=== PATIENT | female | born 1985 | race Caucasian/White ===

== ENCOUNTER 2020-07-06 11:25 | Outpatient (REF) | payer OTHER, SELFPAY ==
--- NOTE | 2020-07-06 11:29 | CT_ITS ---
EXAMINATION: CT SINUS WITHOUT CONTRAST CLINICAL INFORMATION: Sinonasal polyp with deviated septum. COMPARISON: None TECHNIQUE: 2 mm thin axial and reformatted 2 mm thin sagittal and coronal images of sinuses were obtained without contrast. This CT examination was performed using dose optimization techniques as appropriate, variously including the following: *Automated exposure control *Adjustment of mA and/or kV according to patient size (this includes techniques or standardized protocols for targeted exams where dose is matched to indication/reason for exam; i.e. extremities or head) *Use of iterative reconstruction technique DLP: 106 mGy-cm FINDINGS: The frontal, ethmoid, maxillary, and sphenoid sinuses are well aerated. There is minimal mucosal thickening bilateral maxillary sinuses. The rest of paranasal sinuses are clear. The ostiomeatal complex and bilateral frontoethmoidal recesses are widely patent. The bony sinus britton, lamina papyracea and cribriform plate are intact. NASAL CAVITY/NASOPHARYNX: There is mild deviation of the nasal septum to the right with tiny bony spur. The turbinates are symmetrical. The nasopharynx and nasal cavity airway are widely patent. The bony orbits, optic globe and optic nerves are widely patent and symmetrical. ADDITIONAL RELEVANT FINDINGS: No periapical disease is seen. The TMJs articulate normally. The orbits and skull base soft tissues are unremarkable. The middle ear cavities and mastoid air cells are clear. Limited evaluation demonstrates no acute intracranial findings. CT/CT sinus wo con IMPRESSION: Chronic bilateral maxillary sinus inflammatory changes. The drainage pathways are patent. Mild deviation of the nasal septum to the right.
== END 2020-07-06 11:26 | disposition home or self-care (01) ==
LOC: HO.CT 11:25
PROVIDERS: Visit Provider Otolaryngology
DX: J33.0 Polyp of nasal cavity (principal); J34.2 Deviated nasal septum
CPT/HCPCS: 70486

== ENCOUNTER 2020-08-25 15:54 | Outpatient (REF) | payer OTHER, SELFPAY ==
[2020-08-25 16:49] LABS: MANUAL DIFF FLAG NO
[2020-08-25 16:54] LABS: Basophils Absolute Auto 0.1 X10*3/uL (0.0-0.2); Basophils Percent Auto 0.7 % (0-2); Eosinophils Absolute Auto 0.6 X10*3/uL (0.0-0.4); Eosinophils Percent Auto 5.8 % (0-4); Hematocrit 41.6 % (37-47); Hemoglobin 13.9 g/dl (12.0-16.0); Imm Gran Abs Auto 0.03 X10*3/uL (0.00-0.03); Imm Gran Pct Auto 0.3 % (0.0-0.4); Lymphocytes Percent Auto 27.6 % (20-40); Mean Corpuscular HGB Conc 33.4 g/dl (31.0-35.0); Mean Corpuscular Hemoglobin 27.5 pg (27.0-33.0); Mean Corpuscular Volume 82.2 fL (80-98); Mean Platelet Volume 9.1 fL (9.4-12.3); Monocytes Absolute Auto 0.7 X10*3/uL (0.1-1.2); Monocytes Percent Auto 6.5 % (2-11); Neutrophils Absolute Auto 6.3 X10*3/uL (2.0-8.3); Neutrophils Percent Auto 59.1 % (45-73); Platelet Count 404 X10*3/uL (160-400); Red Blood Count 5.06 X10*6/uL (4.20-5.50); Red Cell Distribution Width 14.1 % (11.0-16.0); White Blood Count 10.7 X10*3/uL (4.8-10.8)
[2020-08-25 17:19] LABS: Alanine Aminotransferase 18 U/L (0-31); Albumin Level 4.8 g/dL (3.5-5.0); Alkaline Phosphatase 79 U/L (39-117); Anion Gap 14 (12-20); Aspartate Amino Transferase 15 U/L (5-31); Bilirubin Total 0.3 mg/dL (0.0-1.0); Blood Urea Nitrogen 13 mg/dL (9-16); Calcium 9.6 mg/dL (8.4-10.2); Carbon Dioxide 27 mmol/L (22-29); Chloride 104 mmol/L (96-108); Cholesterol 222 mg/dL; Estimated Glomerular Filt Rate > 60; Glucose Fasting 93 mg/dL (60-99); HDL Cholesterol 49 mg/dL; LDL Cholesterol Calculated 147 mg/dl; Potassium 4.7 mmol/L (3.3-5.1); Sodium 140 mmol/L (135-145); Total Protein 8.5 g/dL (6.5-8.0); Triglycerides 133 mg/dL
[2020-08-25 17:38] LABS: TSH reflex Free T4 35.47 uIU/mL (0.32-4.0)
== END 2020-08-25 15:55 | disposition home or self-care (01) ==
LOC: HO.LAB 15:54
PROVIDERS: PCP Internal Medicine; Visit Provider Nurse Practitioner Family
DX: G43.909 Migraine, unspecified, not intractable, without status migrainosus (principal)
CPT/HCPCS: 36415; 80053; 80061; 84439; 84443; 85025

== ENCOUNTER 2020-10-22 08:11 | Emergency (ER) | payer OTHER, SELFPAY ==
--- NOTE | ~2020-10-22 | CT_ITS ---
EXAMINATION: CT HIP WITHOUT CONTRAST, RIGHT CLINICAL INFORMATION: Right hip and femur pain COMPARISON: None TECHNIQUE: Axial 2 mm thin and reformatted 1 mm thin sagittal and coronal images of right hip were obtained without contrast. DLP 288 mGy-cm. This CT examination was performed using dose optimization techniques as appropriate, variously including the following: *Automated exposure control *Adjustment of mA and/or kV according to patient size (this includes techniques or standardized protocols for targeted exams where dose is matched to indication/reason for exam; i.e. extremities or head) *Use of iterative reconstruction technique FINDINGS: There is no visible acute fracture, dislocation or subluxation. The right hip joint space is maintained normal. No bony erosive changes seen. The cortical margins of proximal femur and the acetabulum are intact. The soft tissues are normal. CT/CT hip RT wo con IMPRESSION: No occult fracture seen. Unremarkable right hip exam.
--- NOTE | ~2020-10-22 | XR_ITS ---
EXAMINATION: XR HIP, RIGHT CLINICAL INFORMATION: Right hip pain. COMPARISON: None. TECHNIQUE: 2 views of the right hip. FINDINGS: There is no visible acute fracture, dislocation or subluxation. There are punctate lucencies seen in the right proximal femur and ischium. These may represent secondary to bone demineralization. Bone marrow abnormality cannot be excluded such as myeloma. XR/XR hip RT w PEL1V IMPRESSION: No visible acute fracture, dislocation or subluxation seen. Multiple small punctate lucencies seen throughout the right proximal femur. This could be secondary to demineralization or bone marrow disease. Correlate with blood test.
[2020-10-22 08:54] VITALS: BP 134/86; PULSE 93; RESP 18; TEMP 36.8; O2SAT 99; BMI 37.1
--- NOTE | 2020-10-22 09:09 | ED.GENADULT ---
HPI - General Adult General Chief complaint: General Medical Stated complaint: JOINT PAIN Time Seen by Provider: 10/22/20 08:37 History of Present Illness HPI narrative: Patient presents to the ED with a 1 day history of right upper extremity pain and and right hip and leg pain. Patient denies any recent trauma pain is 8/10 and increases with range of motion. Patient states she awoke like this and has not had similar symptoms in the past. 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 Pain in the right upper extremity increases with range of motion. No numbness or tingling. Patient denies any loss of bowel movements. Pain patient describes the pain in the right lower extremity from the right hip over to the anterior aspect of the right thigh. Pain increases with range of motion or attempts to ambulate. Symptoms are moderate. Patient states she is fully vaccinated for COVID-19. Patient denies tobacco history no other complaints this time. Related Data Previous Rx's Medication Instructions Recorded prednisone 10 mg tablet 10 mg PO DAILY 9 Days #18 tab 08/14/20 levothyroxine 125 mcg capsule 125 mcg PO DAILY 90 Days #90 cap 08/31/20 methocarbamol 750 mg PO Q8H #20 tab 10/22/20 tramadol 50 mg PO BID PRN #20 tab 10/22/20 Allergies Allergy/AdvReac Type Severity Reaction Status Date / Time dog,cats Allergy Unknown Unknown Uncoded 10/22/20 08:58 mold Allergy Unknown Unknown Uncoded 10/22/20 08:58 Review of Systems Review of Systems: Constitutional : No Weight loss, No Fever, No Chills, No Night Sweats, No Fatigue, No Malaise ENT/Mouth : No Hearing loss, No Ear Pain, No Nasal Congestion, No Sinus Pain, No Hoarseness, No sore throat, No Rhinorrhea, No Swallowing Difficulty Eyes: No Eye Pain, No Swelling, No Redness, No Foreign Body, No Discharge, No Vision Changes Cardiovascular : No Chest Pain, No SOB, No Dyspnea on Exertion, No Orthopnea, No Edema, No Palpitations Respiratory : No Cough, No Sputum, No Wheezing, No Smoke Exposure, No Dyspnea Gastrointestinal : No Nausea, No Vomiting, No Diarrhea, No Constipation, No abdominal Pain, No Hematochezia, No Melena Genitourinary : no irregular bleeding, No Dysuria, No Urinary Frequency, No Hematuria, No Urinary Incontinence, No Urgency, No Flank Pain, No Urinary Flow Changes, No Hesitancy Musculoskeletal : No joint pain, No Myalgias, No Joint SwellingSkin : No Skin Lesions, No rash Neuro : No Weakness, No Numbness, No Paresthesias, No Loss of Consciousness, No Dizziness, No Headache Psych : No Anxiety/Panic, No Depression, No SI/HI/AH/VH, No Social Issues, Heme/Lymph: No Bruising, No Bleeding,No Lymphadenopathy Endocrine : No Polyuria, No Polydipsia, No Temperature Intolerance [facility] Past Medical History Attestation statement: The following information was validated with the patient. Medical History Chronic ear pain Hyperthyroidism Migraine PCOS (polycystic ovarian syndrome) Family History Family History Mother No problems noted. Father High blood pressure Social History Social History Alcohol intake: current Smoking Status: Never smoker Advance Directives: Yes Advance Directives Information Provided: No Advance Directives on File: No Patient : No Physical Exam Vital Signs: Vital Signs: Last Vital Signs Temp 98.2 F 10/22/20 08:54 Pulse 107 H 10/22/20 14:26 Resp 18 10/22/20 11:37 BP 135/90 H 10/22/20 14:26 Pulse Ox 100 10/22/20 14:26 Body Mass Index 37.1 vital signs have been reviewed as normal and appeared to be correct. Blood pressure normal. Heart rate normal. Respiration rate normal. Temperature normal. Oxygen saturation normal. Appearance: Alert. Oriented X3. No acute distress. Head: Normal external exam. Normocephalic. Atraumatic. No Rowe signs noted. No raccoon eyes noted Eyes: PERRLA. EOMI. Conjunctiva and sclera normal. Eyelids normal. ENT: Pharynx normal. Uvula midline. Moist mucous membranes. No trismus noted. No drooling noted. No muffled voice noted. Neck: Soft full range of motion, no JVD CVS: Heart regular rate and rhythm no murmurs and rubs Respiratory: Breath sounds are clear to auscultation bilaterally. No accessory muscle use noted. Abdomen: Soft nontender no rebound or guarding positive bowel sounds Back: No CVA tenderness. Full range of motion noted. Skin: Skin warm and dry. Normal skin color. Normal skin turgor. No rashes/lesions/lacerations noted. Extremities: Right upper extremity she has full range of motion positive tenderness extending from the right elbow to the right forearm. Line Director is equal bilaterally pulses are positive. Right hip positive lateral aspect tenderness pain extending into the anterior aspect of the right quadriceps pain increases with range of motion sensations intact.. Neuro: Oriented X 3. No motor deficit. No sensory deficit. Reflexes normal. No pronator drift. Line Director is equal bilaterally. No focal deficit. Sensation is intact. Course Course Course Narrative: 30 mg Toradol IM and 5 mg Valium p.o. plan to get right hip x-ray. Right upper extremity symptoms likely to due to an overuse injury. Right lower extremity symptoms right hip bursitis versus her right leg sciatica although the lumbar spine is nontender at this time. 10:40 a.m. Patient has had some symptomatic relief x-rays pending 11:18 a.m. Case discussed with attending Dr. Crockett will get a CBC basic metabolic panel and a CT scan of the right hip at this time secondary to plain film findings. 2:23 p.m. Case discussed with Dr. Cui of Radiology the punctated lucency seen on the plain film are not visualized on CT scan close follow-up is still plan for the patient at this time. Will discharge patient with crutches at this time she understands the importance of follow-up. Medical Decision Making Lab Data Result diagrams: 10/22/20 11:32 10/22/20 11:32 Labs: Lab Results 10/22/20 10/22/20 10/22/20 Range/Units 11:32 11:32 12:49 WBC 16.1 H (4.8-10.8) X10*3/uL RBC 4.57 (4.20-5.50) X10*6/uL Hgb 12.8 (12.0-16.0) g/dl Hct 38.8 (37-47) % MCV 84.9 (80-98) fL MCH 28.0 (27.0-33.0) pg MCHC 33.0 (31.0-35.0) g/dl RDW 13.2 (11.0-16.0) % Plt Count 335 (160-400) X10*3/uL MPV 8.5 L (9.4-12.3) fL Immature Gran % (Auto) 0.5 H (0.0-0.4) % Neut % (Auto) 86.3 H (45-73) % Lymph % (Auto) 6.1 L (20-40) % [place] % (Auto) 6.8 (2-11) % Eos % (Auto) 0.1 (0-4) % Baso % (Auto) 0.2 (0-2) % Lymph # (Auto) 1.0 L (1.2-4.9) X10*3/uL [place] # (Auto) 1.1 (0.1-1.2) X10*3/uL Eos # (Auto) 0.0 (0.0-0.4) X10*3/uL Baso # (Auto) 0.0 (0.0-0.2) X10*3/uL Abs Immat Gran (auto) 0.08 H (0.00-0.03) X10*3/uL Absolute Neuts (auto) 13.9 H (2.0-8.3) X10*3/uL Absolute Nucleated RBC 0.000 (0.0-0.012) X10*3/uL Nucleated RBC % (auto) 0.0 (0.0-0.2) /100WBC Sodium 136 (135-145) mmol/L Potassium 4.2 (3.3-5.1) mmol/L Chloride 104 (96-108) mmol/L Carbon Dioxide 24 (22-29) mmol/L Anion Gap 12 (12-20) BUN 9 (9-16) mg/dL Creatinine 0.76 (0.5-1.4) mg/dL Estim Creat Clear Calc 126.1 Estimated GFR > 60 Random Glucose 125 H (60-115) mg/dL Calcium 9.3 (8.4-10.2) mg/dL Urine Test NEGATIVE (NEGATIVE) Imaging Data hip: Radiologist's impression: [address] [id number] ReportSigned Patient: Judy Lang#: [id number]: 1985Acct:[id number]/Sex: 35 / FADM Date: 10/22/20Loc: NIDIAAttending Dr: Ordering Physician: Chris Aaron Date of Service: 10/22/20 Procedure(s): XR hip RT w PEL1V Accession Number(s): [id number] cc: Chris Aaron ~ EXAMINATION: XR HIP, RIGHT CLINICAL INFORMATION: Right hip pain. COMPARISON: None. TECHNIQUE: 2 views of the right hip. FINDINGS: There is no visible acute fracture, dislocation or subluxation. There are punctate lucencies seen in the right proximal femur and ischium. These may represent secondary to bone demineralization. Bone marrow abnormality cannot be excluded such as myeloma. XR/XR hip RT w PEL1V IMPRESSION: No visible acute fracture, dislocation or subluxation seen. Multiple small punctate lucencies seen throughout the right proximal femur. This could be secondary to demineralization or bone marrow disease. Correlate with blood test. Dictated By:AVELINA CUI MDSigned By:<Electronically signed by AVELINA CUI MD in OV>10/22/[address] Hip: Radiologist's impression: [address] Scan ReportSigned Patient: Nela LangMR#: [id number]: 1985Acct:[id number]/Sex: 35 / FADM Date: 10/22/20Loc: EDAttending Dr: Ordering Physician: Chris Aaron Date of Service: 10/22/20 Procedure(s): CT hip RT wo con Accession Number(s): [id number] cc: Chris Aaron ~ EXAMINATION: CT HIP WITHOUT CONTRAST, RIGHT CLINICAL INFORMATION: Right hip and femur pain COMPARISON: None TECHNIQUE: Axial 2 mm thin and reformatted 1 mm thin sagittal and coronal images of right hip were obtained without contrast. DLP 288 mGy-cm. This CT examination was performed using dose optimization techniques as appropriate, variously including the following: *Automated exposure control *Adjustment of mA and/or kV according to patient size (this includes techniques or standardized protocols for targeted exams where dose is matched to indication/reason for exam; i.e. extremities or head) *Use of iterative reconstruction technique FINDINGS: There is no visible acute fracture, dislocation or subluxation. The right hip joint space is maintained normal. No bony erosive changes seen. The cortical margins of proximal femur and the acetabulum are intact. The soft tissues are normal. CT/CT hip RT wo con IMPRESSION: No occult fracture seen. Unremarkable right hip exam. Dictated By:AVELINA CUI MDSigned By:<Electronically signed by AVELINA CUI MD in OV>10/22/20 1405 DD/ 1117TD/TT: Gsa Coordinator: [facility] [place] Dis[place] Plan Discharge Clinical Impression: Acute leg pain Patient Disposition: Home, Self-Care Instructions: Leg Pain (ED) Additional Instructions: Close follow-up with PCP is recommended. CT scan of the right hip and proximal thigh is negative Minimal to light work is recommended at this time until follow-up. Prescriptions: New methocarbamol 750 mg tablet 750 mg PO Q8H Qty: 20 RF: 0 tramadol 50 mg tablet 50 mg PO BID PRN (Reason: severe pain (scale score 7-10)) Qty: 20 RF: 0 No Action levothyroxine 125 mcg capsule 125 mcg PO DAILY 90 Days Qty: 90 RF: 0 prednisone 10 mg tablet 10 mg PO DAILY 9 Days Qty: 18 RF: 0 Referrals: Gary Auguste MD [Primary Care Provider] - 2 days Stand Alone Forms: Work/School Release Interventions: ED Discharge Assessment Last Done: 10/22/20 14:33
[2020-10-22] MEDS: diazePAM 5 MG TABLET PO (09:52)
[2020-10-22] MEDS: Ketorolac Tromethamine 30 MG/ML VIAL IM (09:52)
[2020-10-22 11:36] LABS: MANUAL DIFF FLAG NO
[2020-10-22 11:37] VITALS: RESP 18
[2020-10-22 11:40] LABS: Basophils Percent Auto 0.2 % (0-2); Eosinophils Percent Auto 0.1 % (0-4); Hematocrit 38.8 % (37-47); Hemoglobin 12.8 g/dl (12.0-16.0); Imm Gran Abs Auto 0.08 X10*3/uL (0.00-0.03); Imm Gran Pct Auto 0.5 % (0.0-0.4); Lymphocytes Percent Auto 6.1 % (20-40); Mean Corpuscular Volume 84.9 fL (80-98); Mean Platelet Volume 8.5 fL (9.4-12.3); Monocytes Absolute Auto 1.1 X10*3/uL (0.1-1.2); Monocytes Percent Auto 6.8 % (2-11); Neutrophils Absolute Auto 13.9 X10*3/uL (2.0-8.3); Neutrophils Percent Auto 86.3 % (45-73); Platelet Count 335 X10*3/uL (160-400); Red Blood Count 4.57 X10*6/uL (4.20-5.50); Red Cell Distribution Width 13.2 % (11.0-16.0); White Blood Count 16.1 X10*3/uL (4.8-10.8)
[2020-10-22 12:12] LABS: Anion Gap 12 (12-20); Blood Urea Nitrogen 9 mg/dL (9-16); Calcium 9.3 mg/dL (8.4-10.2); Carbon Dioxide 24 mmol/L (22-29); Chloride 104 mmol/L (96-108); Creatinine Clr Calc Pharmacy 126.1; Estimated Glomerular Filt Rate > 60; Glucose Random 125 mg/dL (60-115); Potassium 4.2 mmol/L (3.3-5.1); Sodium 136 mmol/L (135-145)
[2020-10-22 13:00] LABS: UPreg QC Valid YES; Urine Pregnancy NEGATIVE (NEGATIVE)
[2020-10-22 14:26] VITALS: BP 135/90; PULSE 107; O2SAT 100
== END 2020-10-22 14:40 | disposition home or self-care (01) ==
PROVIDERS: Physician Assistant; Emergency Provider Emergency Medicine; PCP Internal Medicine
DX: M79.604 Pain in right leg (principal)
CPT/HCPCS: 36415; 73502; 73700; 80048; 81025; 85025; 96372; 99284; J1885

== ENCOUNTER 2020-11-03 16:29 | Outpatient (REF) | payer OTHER, SELFPAY ==
[2020-11-03 18:02] LABS: Rheumatoid Factor < 15.0 IU/mL (<15.0)
[2020-11-03 18:19] LABS: TSH reflex Free T4 1.11 uIU/mL (0.32-4.0)
[2020-11-03 19:32] LABS: Erythrocyte Sedimentation Rate 37 MM/HR (0-20)
[2020-11-04 12:31] LABS: Anti DNA DS Antibody <1 IU/mL
[2020-11-04 13:47] LABS: Lyme Abs Screen <0.90 index
[2020-11-06 23:06] LABS: Anti Nuclear Antibody Pattern Nuclear, Homogeneous; Anti Nuclear Antibody Screen POSITIVE (NEGATIVE)
== END 2020-11-03 16:30 | disposition home or self-care (01) ==
LOC: HO.LAB 16:29
PROVIDERS: PCP Internal Medicine; Visit Provider Physician Assistant
DX: E03.9 Hypothyroidism, unspecified (principal); M25.50 Pain in unspecified joint
CPT/HCPCS: 36415; 84443; 85652; 86038; 86039; 86225; 86431; 86617; 86618

== ENCOUNTER 2020-12-10 13:01 | Outpatient (REF) | payer OTHER, SELFPAY ==
[2020-12-11 05:42] LABS: Prolactin 50.5 ng/mL
== END 2020-12-10 13:02 | disposition home or self-care (01) ==
LOC: HO.LAB 13:01
PROVIDERS: PCP Internal Medicine; Visit Provider Psychiatry & Neurology Neurology
DX: E23.7 Disorder of pituitary gland, unspecified (principal)
CPT/HCPCS: 36415; 84146

== ENCOUNTER 2021-12-30 09:05 | Outpatient (REF) | payer OTHER, SELFPAY ==
[2021-12-30 10:31] LABS: Hematocrit 38.7 % (37.0-47.0); Hemoglobin 12.4 g/dl (12.0-16.0); Mean Corpuscular Volume 81.1 fL (80.0-98.0); Mean Platelet Volume 9.4 fL (9.4-12.3); Platelet Count 379 X10*3/uL (160-400); Red Blood Count 4.77 X10*6/uL (4.20-5.50); Red Cell Distribution Width 13.2 % (11.0-16.0); White Blood Count 9.7 X10*3/uL (4.8-10.8)
[2021-12-30 10:47] LABS: Appearance Urine CLEAR; Color Urine YELLOW; Glucose Urine UA NEG (NEG); Leukocyte Esterase Urine NEG (NEG); Nitrite Urine NEG (NEG); PH 6.5 (5.0-8.0); Specific Gravity - Urine 1.025 (1.005-1.025); Urine Blood 3+ (NEG); Urine Ketones NEG (NEG); Urine Protein NEG (NEG-TRACE)
[2021-12-30 11:00] LABS: Alanine Aminotransferase 18 U/L (0-31); Albumin Level 4.3 g/dL (3.5-5.0); Alkaline Phosphatase 64 U/L (39-117); Anion Gap 12 (12-20); Aspartate Amino Transferase 15 U/L (5-31); Bilirubin Direct 0.2 mg/dL (0.0-0.5); Bilirubin Total 0.5 mg/dL (0.0-1.0); Blood Urea Nitrogen 17 mg/dL (9-16); C Reactive Protein 0.48 mg/dL (< or = 0.50); Calcium 8.9 mg/dL (8.4-10.2); Carbon Dioxide 25 mmol/L (22-29); Chloride 107 mmol/L (96-108); Cholesterol 156 mg/dL; Estimated Glomerular Filt Rate > 60; Glucose Random 98 mg/dL (60-115); HDL Cholesterol 43 mg/dL; LDL Cholesterol Calculated 97 mg/dl; Potassium 4.7 mmol/L (3.3-5.1); Sodium 139 mmol/L (135-145); Total Protein 7.5 g/dL (6.5-8.0); Triglycerides 83 mg/dL
[2021-12-30 11:02] LABS: Bacteria Urine 2+ /LPF; Mucus Urine 1+ /LPF; Squamous Epithelial Cell Urine 3+ /LPF
[2021-12-30 11:03] LABS: RBC Urine 0-2 /HPF (0); WBC Urine 0-2 /HPF (0-4)
[2021-12-30 11:26] LABS: Thyroid Stimulating Hormone 1.63 uIU/mL (0.32-4.0)
== END 2021-12-30 09:06 | disposition home or self-care (01) ==
LOC: HO.LAB 09:05
PROVIDERS: PCP Internal Medicine; Visit Provider Internal Medicine
DX: Z00.00 Encounter for general adult medical examination without abnormal findings (principal)
CPT/HCPCS: 36415; 80048; 80061; 80076; 81001; 84443; 85027; 86140

== ENCOUNTER 2023-01-04 10:10 | Outpatient (AMB) | payer OTHER, SELFPAY ==
--- NOTE | 2023-01-04 10:12 | MHC.PC.OV ---
Vital Signs 01/04/23 10:14 Height 5 ft 6 in Weight 177 lb 8 oz BMI 28.6 BP 110/68 Blood Pressure Location Lt brachial Position Sitting Pulse 73 Pulse Source Pulse Oximeter Pulse Oximetry (%) 98 Oxygen Delivery Method Room Air Intake Visit Reasons: Discuss going back on med Intake Note: Patient is here today for medication review and starting new medication for anxiety. 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 Required: No Rn Disease Management: Not Required per policy Accompanied by: Self / Same As Patient Allergies dog,cats Allergy (Unknown, Uncoded 01/04/23 10:55) Unknown mold Allergy (Unknown, Uncoded 01/04/23 10:55) Unknown Medication List - Last Reconciled 01/04/23 by Gary Auguste MD cabergoline 0.25 mg PO 2XW cholecalciferol (vitamin D3) 125 mcg PO DAILY hydroxychloroquine 400 mg PO BID meloxicam 15 mg PO DAILY Tobacco use date assessed: 01/04/23 Dental Screening Dental Screen Date: 01/04/23 Did you have a dental visit in the last 12 months?: Yes Did you have a dental problem in the last 6 months where you did not have access to dental care?: No Was dental information given to patient?: Patient has dentist HPI Discuss going back on med HPI Details 37-year-old female presents to the office to discuss issues of anxiety. Patient used to take Prozac and stopped taking it 8 years ago. She does not recall the dosage she was taking. Patient is going through stress. She is currently going through a divorce and her 3-year-old child has not started talking. She has racing thoughts, disturb sleep. No crying spells. Her appetite is okay. Recently she was diagnosed with mixed connective tissue disorder. [facility] Medical History (Updated 01/04/23 @ 11:06 by Gary Auguste MD) Chronic ear pain Hyperthyroidism MCTD (mixed connective tissue disease) Migraine PCOS (polycystic ovarian syndrome) Surgical History History of delivery History of right knee surgery Family History Mother No problems noted. Father High blood pressure Social History (Reviewed 07/19/23 @ 10:12 by MATT Dozier Housing: Apartment Alcohol intake: never Patient Tobacco Use Status: Never used Tobacco e-Cigarette/Vaping Use: Currently Using Second Hand Smoke Exposure: No service: No Current occupational status: employed Cognitive needs: No Hearing needs: No Vision needs: Yes (glasses) Questionnaire PHQ-9 Over the last 2 weeks, how often have you been bothered by any of the following problems? 1. Little interest or pleasure in doing things: not at all 2. Feeling down, depressed, or hopeless: not at all 3. Trouble falling or staying asleep, or sleeping too much: not at all 4. Feeling tired or having little energy: not at all 5. Poor appetite or overeating: not at all 6. Feeling bad about yourself - or that you are a failure or have let yourself or your family down: not at all 7. Trouble concentrating on things, such as reading the newspaper or watching television: not at all 8. Moving or speaking so slowly that other people could have noticed. Or the opposite - being so fidgety or restless that you have been moving around a lot more than usual: not at all 9. Thoughts that you would be better off or of hurting yourself in some way: not at all Total score: 0 Depression Screening Interpretation: Negative Source: Developed by Drs. Caleb Muñoz, Carmina Severino, Rodrigo Ruvalcaba and colleagues, with an educational flor from [employer]. Thrive Questionnaire Date Thrive assessed: 01/04/23 I am a: Patient What is your living situation today?: I have a steady place to live Within the past 12 months, did the food you bought not last and you didn't have the money to get more?: Never true Within the past 12 months, did you worry whether your food would run out before you got money to buy more?: Never true Do you have trouble paying for medicines?: No Do you have trouble getting transportation to medical appointments?: No Do you have trouble paying your heating and electricity bill?: No Do you have trouble taking care of your child, family member or friend?: No Do you have trouble with day-to-day activities such as bathing, preparing meals, shopping, managing finances, etc.?: No Are you currently unemployed and looking for a job?: No Are you interested in more education?: No Currently or been in a relationship where the following occur: no concerns reported AUDIT C Alcohol Use Questionnaire (AUDIT-C) 1. How often do you have a drink containing alcohol?: Never 2. How many drinks containing alcohol do you have on a typical day when you are drinking?: 1 or 2 Total Score: 0 BAKARI-7 AMB Questionnaire BAKARI-7 Date BAKARI - 7 assessed: 01/04/23 Feeling nervous, anxious, or on edge: 3 = Nearly every day Not being able to stop or control worryin = Nearly every day Worrying too much about different things: 3 = Nearly every day Trouble relaxin = Nearly every day Being so restless that it is hard to sit still: 0 = Not at all Becoming easily annoyed or irritable: 0 = Not at all Feeling afraid as if something awful might happen: 1 = Several days Total BAKARI-7 score (0-4 normal; 5-9 mild; 10-14 moderate; 15-21 severe): 13 Source: Developed by Drs. Caleb Muñoz, Carmina Severino, Rodrigo Ruvalcaba and colleagues, with an educational flor from [employer]. Physical exam (Primary Care) Vital Signs: Last Vital Signs Pulse 73 01/04/23 10:14 BP 110/68 01/04/23 10:14 Pulse Ox 98 01/04/23 10:14 Oxygen Delivery Method Room Air 01/04/23 10:14 BMI result Body Mass Index 28.6 Tobacco/Smoking Status: Tobacco use Status Tobacco use date assessed 01/04/23 01/04/23 10:22 Patient Tobacco Use Status Never used Tobacco 01/04/23 10:22 e-Cigarette/Vaping Use Currently Using 01/04/23 10:22 PHQ-9: PHQ-9 Score PHQ-9: Total score 0 01/04/23 10:22 Depression Screening Interpretation: Negative Thrive Assessment: Date of Thrive Assessment Date Thrive assessed 01/04/23 01/04/23 10:22 Currently or been in a relationship where the following occur: no concerns reported Const General: cooperative, healthy appearing and comfortable HENMT Head: Yes normal to inspection and Yes atraumatic Eyes General: appearance normal, both eyes and all related structures Neck Neck: Yes normal visual inspection and Yes full ROM Chest Chest palpation & inspection: normal inspection of the chest Resp Effort & Inspection: normal respiratory effort Auscultation: clear to auscultation bilaterally Cardio Jugular venous distension: no JVD Palpation: normal PMI Rate: regular rate Heart sounds: S1 normal heart sound present and S2 normal heart sound present GI Palpation (GI): Soft to palpation and No hepatosplenomegaly present Extrem General: Yes normal to inspection and Yes full ROM Assessment and Plan Assessment & Plan (1) MCTD (mixed connective tissue disease): Code(s): M35.1 - Other overlap syndromes Plan: Continue to follow-up with the candle making supervisor. Meloxicam to be continued. (2) Pituitary adenoma: Code(s): D35.2 - Benign neoplasm of pituitary gland Plan: Condition is stable. (3) Generalized anxiety disorder: Code(s): F41.1 - Generalized anxiety disorder Plan: Fluoxetine 20 mg has been started. Follow-up appointment in 6 weeks. Blood work include TSH has been ordered. Medications: Refilled meloxicam 15 mg PO DAILY 90 tabs 0RF M25.50 - Pain in unspecified joint Coding Level of Care Code Est Pt Level 4 (99158) Diagnoses MCTD (mixed connective tissue disease) M35.1 Pituitary adenoma D35.2 Generalized anxiety disorder F41.1
[2023-01-04 10:14] VITALS: BP 110/68; PULSE 73; O2SAT 98; BMI 28.6
== END 2023-01-04 10:53 | disposition home or self-care (01) ==
PROVIDERS: PCP Internal Medicine; Visit Provider Internal Medicine
DX: M35.1 Other overlap syndromes (principal); D35.2 Benign neoplasm of pituitary gland; F41.1 Generalized anxiety disorder
CPT/HCPCS: 99214

== ENCOUNTER 2023-02-16 07:59 | Outpatient (AMB) | payer OTHER, SELFPAY ==
[2023-02-16 08:15] VITALS: BP 112/68; PULSE 65; O2SAT 98; BMI 28.4
--- NOTE | 2023-02-16 08:15 | MHC.PC.OV ---
Vital Signs 02/16/23 08:15 Height 5 ft 6 in Weight 176 lb BMI 28.4 BP 112/68 Blood Pressure Location Lt brachial Position Sitting Pulse 65 Pulse Source Pulse Oximeter Pulse Oximetry (%) 98 Oxygen Delivery Method Room Air Intake Visit Reasons: 6mth f/u Allergies dog,cats Allergy (Unknown, Uncoded 02/16/23 08:37) Unknown mold Allergy (Unknown, Uncoded 02/16/23 08:37) Unknown Medication List - Last Reconciled 02/16/23 by Gary Auguste MD cabergoline 0.25 mg PO 2XW cholecalciferol (vitamin D3) 125 mcg PO DAILY fluoxetine 20 mg PO DAILY hydroxychloroquine 400 mg PO BID meloxicam 15 mg PO DAILY Tobacco use date assessed: 01/04/23 Dental Screening Dental Screen Date: 02/16/23 Did you have a dental visit in the last 12 months?: Yes Did you have a dental problem in the last 6 months where you did not have access to dental care?: No Was dental information given to patient?: Patient has dentist HPI 6mth f/u HPI Details 38-year-old female presents to the office to discuss her chronic medical conditions. 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 Her anxiety levels are slightly higher. Symptoms are controlled by the medication she is taking. She would require a refill of the same. Her sleep patterns have been disturb recently. Not exercising or following any particular diet. Able to function and do all activities of daily living. Continues to see the network cable installer at [place] and patient is on Plaquenil. She has not made her appointment with the eye MD still. Patient sees the neurologist for her hyperprolactinemia state. Patient is on Cabergoline. Menstrual cycle is regular. [facility]LY [facility] Medical History Chronic ear pain Hyperthyroidism MCTD (mixed connective tissue disease) Migraine PCOS (polycystic ovarian syndrome) Surgical History History of delivery History of right knee surgery Family History Mother No problems noted. Father High blood pressure Social History Housing: Apartment Alcohol intake: never Patient Tobacco Use Status: Never used Tobacco e-Cigarette/Vaping Use: Currently Using Second Hand Smoke Exposure: No service: No Current occupational status: employed Cognitive needs: No Hearing needs: No Vision needs: Yes (glasses) Questionnaire PHQ-9 Over the last 2 weeks, how often have you been bothered by any of the following problems? 1. Little interest or pleasure in doing things: not at all 2. Feeling down, depressed, or hopeless: not at all 3. Trouble falling or staying asleep, or sleeping too much: not at all 4. Feeling tired or having little energy: not at all 5. Poor appetite or overeating: not at all 6. Feeling bad about yourself - or that you are a failure or have let yourself or your family down: not at all 7. Trouble concentrating on things, such as reading the newspaper or watching television: not at all 8. Moving or speaking so slowly that other people could have noticed. Or the opposite - being so fidgety or restless that you have been moving around a lot more than usual: not at all 9. Thoughts that you would be better off or of hurting yourself in some way: not at all Total score: 0 Depression Screening Interpretation: Negative Source: Developed by Drs. Caleb Muñoz, Carmina Severino, Rodrigo Ruvalcaba and colleagues, with an educational flor from [employer]. Thrive Questionnaire Date Thrive assessed: 01/04/23 AUDIT C Alcohol Use Questionnaire (AUDIT-C) 1. How often do you have a drink containing alcohol?: Never 2. How many drinks containing alcohol do you have on a typical day when you are drinking?: 1 or 2 Total Score: 0 BAKARI-7 AMB Questionnaire BAKARI-7 Date BAKARI - 7 assessed: 02/16/23 Feeling nervous, anxious, or on edge: 1 = Several days Not being able to stop or control worryin = Not at all Worrying too much about different things: 1 = Several days Trouble relaxin = Several days Being so restless that it is hard to sit still: 0 = Not at all Becoming easily annoyed or irritable: 0 = Not at all Feeling afraid as if something awful might happen: 0 = Not at all Total BAKARI-7 score (0-4 normal; 5-9 mild; 10-14 moderate; 15-21 severe): 3 Source: Developed by Drs. Caleb Muñoz, Carmina Severino, Rodrigo Ruvalcaba and colleagues, with an educational flor from [employer]. Physical exam (Primary Care) Vital Signs: Last Vital Signs Pulse 65 02/16/23 08:15 BP 112/68 02/16/23 08:15 Pulse Ox 98 02/16/23 08:15 Oxygen Delivery Method Room Air 02/16/23 08:15 BMI result Body Mass Index 28.4 Tobacco/Smoking Status: Tobacco use Status Tobacco use date assessed 01/04/23 02/16/23 08:19 Patient Tobacco Use Status Never used Tobacco 02/16/23 08:19 e-Cigarette/Vaping Use Currently Using 02/16/23 08:19 PHQ-9: PHQ-9 Score PHQ-9: Total score 0 02/16/23 08:19 Depression Screening Interpretation: Negative Thrive Assessment: Date of Thrive Assessment Date Thrive assessed 01/04/23 02/16/23 08:19 Const General: cooperative, healthy appearing and comfortable HENMT Head: Yes normal to inspection and Yes atraumatic Eyes General: appearance normal, both eyes and all related structures Neck Neck: Yes normal visual inspection and Yes full ROM Chest Chest palpation & inspection: normal inspection of the chest Resp Effort & Inspection: normal respiratory effort Auscultation: clear to auscultation bilaterally Cardio Jugular venous distension: no JVD Palpation: normal PMI Rate: regular rate Heart sounds: S1 normal heart sound present and S2 normal heart sound present GI Palpation (GI): Soft to palpation and No hepatosplenomegaly present Extrem General: Yes normal to inspection and Yes full ROM Assessment and Plan Assessment & Plan (1) Generalized anxiety disorder: Code(s): F41.1 - Generalized anxiety disorder Plan: Continue current medication at same dosage. Prescription has been sent again. (2) MCTD (mixed connective tissue disease): Code(s): M35.1 - Other overlap syndromes Plan: Continue follow-up with network cable installer. Patient was advised to get the eye appointment done periodically. (3) Hypothyroidism: Code(s): E03.9 - Hypothyroidism, unspecified Qualifiers: Hypothyroidism type: unspecified Qualified Code(s): E03.9 - Hypothyroidism, unspecified Plan: Blood work has been ordered. (4) Pituitary adenoma: Code(s): D35.2 - Benign neoplasm of pituitary gland Plan: Patient follows up with her neurologist. Continue on current medications. Coding Level of Care Code Est Pt Level 4 (48508) Diagnoses Generalized anxiety disorder F41.1 MCTD (mixed connective tissue disease) M35.1 Hypothyroidism E03.9 Hypothyroidism type: unspecified Pituitary adenoma D35.2
== END 2023-02-16 09:27 | disposition home or self-care (01) ==
PROVIDERS: PCP Internal Medicine; Visit Provider Internal Medicine
DX: F41.1 Generalized anxiety disorder (principal); M35.1 Other overlap syndromes; E03.9 Hypothyroidism, unspecified; D35.2 Benign neoplasm of pituitary gland
CPT/HCPCS: 99214

== ENCOUNTER 2023-08-10 11:51 | Outpatient (REF) | payer OTHER, SELFPAY ==
[2023-08-10 13:27] LABS: Hematocrit 39.3 % (37.0-47.0); Hemoglobin 12.6 g/dl (12.0-16.0); Mean Corpuscular HGB Conc 32.1 g/dl (31.0-35.0); Mean Corpuscular Hemoglobin 25.6 pg (27.0-33.0); Mean Corpuscular Volume 79.7 fL (80.0-98.0); Mean Platelet Volume 9.3 fL (9.4-12.3); Platelet Count 357 X10*3/uL (160-400); Red Blood Count 4.93 X10*6/uL (4.20-5.50); Red Cell Distribution Width 12.8 % (11.0-16.0); White Blood Count 7.2 X10*3/uL (4.8-10.8)
[2023-08-10 13:38] LABS: Appearance Urine Turbid; Color Urine Yellow; Glucose Urine UA Negative (Negative); Leukocyte Esterase Urine Negative (Negative); Nitrite Urine Negative (Negative); Specific Gravity - Urine 1.025 (1.005-1.025); Urine Blood Negative (Negative); Urine Ketones Negative (Negative); Urine Protein Trace mg/dL (Neg-Trace)
[2023-08-10 13:58] LABS: Alanine Aminotransferase 15 U/L (0-31); Alkaline Phosphatase 57 U/L (39-117); Anion Gap 11 (12-20); Aspartate Amino Transferase 14 U/L (5-31); Bilirubin Direct 0.1 mg/dL (0.0-0.5); Bilirubin Total 0.3 mg/dL (0.0-1.0); Blood Urea Nitrogen 11 mg/dL (9-16); Calcium 9.3 mg/dL (8.4-10.2); Carbon Dioxide 30 mmol/L (22-29); Chloride 105 mmol/L (96-108); Cholesterol 154 mg/dL (<200); Estimated Glomerular Filt Rate > 60; Glucose Random 85 mg/dL (60-115); HDL Cholesterol 48 mg/dL (>40); LDL Cholesterol Calculated 88 mg/dL (<100); Potassium 4.4 mmol/L (3.3-5.1); Sodium 142 mmol/L (135-145); Total Protein 7.7 g/dL (6.5-8.0); Triglycerides 92 mg/dL (<150)
[2023-08-10 14:15] LABS: Thyroid Stimulating Hormone 1.14 uIU/mL (0.32-4.0)
== END 2023-08-10 11:52 | disposition home or self-care (01) ==
LOC: HO.LAB 11:51
PROVIDERS: PCP Internal Medicine; Visit Provider Internal Medicine
DX: F41.1 Generalized anxiety disorder (principal); M35.1 Other overlap syndromes; E03.9 Hypothyroidism, unspecified
CPT/HCPCS: 36415; 80048; 80061; 80076; 81003; 84443; 85027

== ENCOUNTER 2023-08-24 14:39 | Outpatient (AMB) | payer OTHER, SELFPAY ==
--- NOTE | 2023-08-24 15:03 | MHC.PC.OV ---
Vital Signs 08/24/23 15:05 Height 5 ft 6 in Weight 171 lb BMI 27.6 BP 110/72 Blood Pressure Location Lt brachial Position Sitting Pulse 70 Pulse Source Pulse Oximeter Pulse Oximetry (%) 97 Oxygen Delivery Method Room Air Intake Visit Reasons: f/u Intake Note: Patient is here to follow up on Hypothyroidism, Migraine. Oil Processing Technician Required: No Drone Software Development Engineer: Not Required per policy Accompanied by: Self / Same As Patient Allergies dog,cats Allergy (Unknown, Uncoded 08/25/23 09:09) Unknown mold Allergy (Unknown, Uncoded 08/25/23 09:09) Unknown Medication List - Last Reconciled 08/25/23 by Gary Auguste MD cholecalciferol (vitamin D3) 125 mcg PO DAILY fluoxetine 10 mg PO DAILY fluoxetine 20 mg PO DAILY hydroxychloroquine 400 mg PO BID meloxicam 15 mg PO DAILY Tobacco use date assessed: 08/24/23 Dental Screening Dental Screen Date: 08/24/23 Did you have a dental visit in the last 12 months?: Yes Did you have a dental problem in the last 6 months where you did not have access to dental care?: No Was dental information given to patient?: Patient has dentist HPI f/u HPI Details 38-year-old female presents to the office to discuss her chronic medical conditions. Patient would like her Prozac dose to be increased. 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 She is feeling disinterested. Not asking family for support. 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 Not sleeping well at night. In the past few weeks, patient had been diagnosed with upper respiratory tract infection and ear infection. Most of her symptoms have subsided, however her right ear continues to irritate her. Small amount of ringing in the year and the feeling of a fuzzy sound. [facility] Medical History MCTD (mixed connective tissue disease) PCOS (polycystic ovarian syndrome) Hyperthyroidism Migraine Chronic ear pain Surgical History History of delivery History of right knee surgery Family History Mother No problems noted. Father High blood pressure Social History Housing: Apartment Alcohol intake: never Patient Tobacco Use Status: Never used Tobacco e-Cigarette/Vaping Use: Currently Using Second Hand Smoke Exposure: No service: No Current occupational status: employed Cognitive needs: No Hearing needs: No Vision needs: Yes (glasses) Questionnaire PHQ-9 Over the last 2 weeks, how often have you been bothered by any of the following problems? 1. Little interest or pleasure in doing things: more than half the days 2. Feeling down, depressed, or hopeless: more than half the days 3. Trouble falling or staying asleep, or sleeping too much: more than half the days 4. Feeling tired or having little energy: more than half the days 5. Poor appetite or overeating: more than half the days 6. Feeling bad about yourself - or that you are a failure or have let yourself or your family down: not at all 7. Trouble concentrating on things, such as reading the newspaper or watching television: more than half the days 8. Moving or speaking so slowly that other people could have noticed. Or the opposite - being so fidgety or restless that you have been moving around a lot more than usual: not at all 9. Thoughts that you would be better off or of hurting yourself in some way: not at all Total score: 12 Depression Screening Interpretation: Positive Depression Screening Done: Yes Source: Developed by Drs. Caleb Muñoz, Carmina Severino, Rodrigo Ruvalcaba and colleagues, with an educational flor from [email or web address]. Thrive Questionnaire Date Thrive assessed: 08/24/23 I am a: Patient What is your living situation today?: I have a steady place to live Within the past 12 months, did the food you bought not last and you didn't have the money to get more?: Never true Within the past 12 months, did you worry whether your food would run out before you got money to buy more?: Never true Do you have trouble paying for medicines?: No Do you have trouble getting transportation to medical appointments?: No Do you have trouble paying your heating and electricity bill?: No Do you have trouble taking care of your child, family member or friend?: No Do you have trouble with day-to-day activities such as bathing, preparing meals, shopping, managing finances, etc.?: No Are you currently unemployed and looking for a job?: No Are you interested in more education?: No Currently or been in a relationship where the following occur: no concerns reported THRIVE Score: 0 AUDIT C Alcohol Use Questionnaire (AUDIT-C) 1. How often do you have a drink containing alcohol?: Never Total Score: 0 BAKARI-7 AMB Questionnaire BAKARI-7 Date BAKARI - 7 assessed: 08/24/23 Feeling nervous, anxious, or on edge: 2 = More than half the days Not being able to stop or control worryin = More than half the days Worrying too much about different things: 2 = More than half the days Trouble relaxin = More than half the days Being so restless that it is hard to sit still: 1 = Several days Becoming easily annoyed or irritable: 0 = Not at all Feeling afraid as if something awful might happen: 2 = More than half the days Total BAKARI-7 score (0-4 normal; 5-9 mild; 10-14 moderate; 15-21 severe): 11 Source: Developed by Drs. Caleb Muñoz, Carmina Severino, Rodrigo Ruvalcaba and colleagues, with an educational flor from [email or web address]. Physical exam (Primary Care) Vital Signs: Last Vital Signs Pulse 70 08/24/23 15:05 BP 110/72 08/24/23 15:05 Pulse Ox 97 08/24/23 15:05 Oxygen Delivery Method Room Air 08/24/23 15:05 BMI result Body Mass Index 27.6 Tobacco/Smoking Status: Tobacco use Status Tobacco use date assessed 08/24/23 08/24/23 15:12 Patient Tobacco Use Status Never used Tobacco 08/24/23 15:12 e-Cigarette/Vaping Use Currently Using 08/24/23 15:12 PHQ-9: PHQ-9 Score PHQ-9: Total score 12 08/24/23 15:12 Depression Screening Interpretation: Positive Thrive Assessment: Date of Thrive Assessment Date Thrive assessed 08/24/23 08/24/23 15:12 Currently or been in a relationship where the following occur: no concerns reported Const General: cooperative and healthy appearing Nutritional Appearance: well nourished Orientation/consciousness: patient oriented x3 Limitations: no limitations HENMT Other: Left ear: Mild redness in the tympanic membrane. Ear canal appears normal. Head: Yes normal to inspection Eyes General: appearance normal, both eyes and all related structures Neck Neck: Yes normal visual inspection Chest Chest palpation & inspection: normal palpation of entire chest wall Resp Effort & Inspection: normal respiratory effort Neuro General: patient oriented x3 Assessment and Plan Assessment & Plan (1) Generalized anxiety disorder: Code(s): F41.1 - Generalized anxiety disorder Plan: Fluoxetine has been increased to 30 mg once a day. Therapy counseling has been requested. (2) MCTD (mixed connective tissue disease): Code(s): M35.1 - Other overlap syndromes Plan: This condition appears to be stable. Patient sees a sealer operator. (3) Hypothyroidism: Code(s): E03.9 - Hypothyroidism, unspecified Qualifiers: Hypothyroidism type: unspecified Qualified Code(s): E03.9 - Hypothyroidism, unspecified Plan: TSH appears to be in range. Patient is not on any medications for thyroid replacement. (4) Pituitary adenoma: Code(s): D35.2 - Benign neoplasm of pituitary gland Medications: New fluoxetine 10 mg PO DAILY 90 tabs 0RF Refilled meloxicam 15 mg PO DAILY 90 tabs 0RF M25.50 - Pain in unspecified joint Coding Level of Care Code Est Pt Level 4 (56283) Diagnoses Generalized anxiety disorder F41.1 MCTD (mixed connective tissue disease) M35.1 Hypothyroidism, unspecified type E03.9 Hypothyroidism type: unspecified Pituitary adenoma D35.2
[2023-08-24 15:05] VITALS: BP 110/72; PULSE 70; O2SAT 97; BMI 27.6
== END 2023-08-24 15:31 | disposition home or self-care (01) ==
PROVIDERS: PCP Internal Medicine; Visit Provider Internal Medicine
DX: F41.1 Generalized anxiety disorder (principal); M35.1 Other overlap syndromes; E03.9 Hypothyroidism, unspecified; D35.2 Benign neoplasm of pituitary gland
CPT/HCPCS: 99214

== ENCOUNTER 2024-01-09 08:54 | Outpatient (AMB) | payer OTHER, SELFPAY ==
--- NOTE | 2024-01-09 08:57 | A.OFFPC_ITS ---
Vital Signs 01/09/24 08:58 Height 5 ft 6 in Weight 194 lb BMI 31.3 BP 130/70 Blood Pressure Location Lt brachial Position Sitting Pulse 83 Pulse Source Pulse Oximeter Pulse Oximetry (%) 93 Oxygen Delivery Method Room Air Intake Visit Reasons: 3 month f/u Intake Note: Patient is here to follow up on BAKARI, MCTD, Hypothyroidism. Bulldozer Press Operator Required: No Senior Administrative Support: Not Required per policy Accompanied by: Self / Same As Patient Allergies dog,cats Allergy (Unknown, Uncoded 01/09/24 08:58) Unknown mold Allergy (Unknown, Uncoded 01/09/24 08:58) Unknown Tobacco use date assessed: 01/09/24 Dental Screening Dental Screen Date: 08/24/23 HPI 3 month f/u HPI Details 38-year-old female presents to the offic e to discuss her chronic medical conditions. 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 However, she is very positive and upbeat. She is sleeping well and able to function and do all activities of daily living. Compliant with her medications. Reporting no side effects. Regarding her rheumatological issue, her condition is stable. She does get nonspecific body aches and joint swellings at times. She is taking the hydroxychloroquine but has not had an ophthalmology evaluation. She promises to get an evaluation after her new insurance kicks in. Patient also has a pituitary adenoma and sees a neurologist. Routine blood work done by the product control and logistics analyst showed elevated prolactin levels. [facility] Medical History MCTD (mixed connective tissue disease) PCOS (polycystic ovarian syndrome) Hyperthyroidism Migraine Chronic ear pain Surgical History History of delivery History of right knee surgery Family History Mother No problems noted. Father High blood pressure Social History Housing: Apartment Alcohol intake: never Patient Tobacco Use Status: Never used Tobacco e-Cigarette/Vaping Use: Former Use Second Hand Smoke Exposure: No service: No Current occupational status: employed Cognitive needs: No Hearing needs: No Vision needs: Yes (glasses) Questionnaire Thrive Questionnaire Date Thrive assessed: 08/24/23 BAKARI-7 AMB Questionnaire BAKARI-7 Date BAKARI - 7 assessed: 01/09/24 Feeling nervous, anxious, or on edge: 1 = Several days Not being able to stop or control worryin = Not at all Worrying too much about different things: 0 = Not at all Trouble relaxin = Not at all Being so restless that it is hard to sit still: 2 = More than half the days Becoming easily annoyed or irritable: 1 = Several days Feeling afraid as if something awful might happen: 0 = Not at all Total BAKARI-7 score (0-4 normal; 5-9 mild; 10-14 moderate; 15-21 severe): 4 Source: Developed by Drs. Caleb Muñoz, Carmina Severino, Rodrigo Ruvalcaba and colleagues, with an educational flor from [employer]. Physical exam (Primary Care) Vital Signs: Last Vital Signs Pulse 83 01/09/24 08:58 BP 130/70 01/09/24 08:58 Pulse Ox 93 01/09/24 08:58 Oxygen Delivery Method Room Air 01/09/24 08:58 BMI result Body Mass Index 31.3 Tobacco/Smoking Status: Tobacco use Status Tobacco use date assessed 01/09/24 01/09/24 09:04 Patient Tobacco Use Status Never used Tobacco 01/09/24 09:04 e-Cigarette/Vaping Use Former Use 01/09/24 09:04 Thrive Assessment: Date of Thrive Assessment Date Thrive assessed 08/24/23 01/09/24 09:04 Const General: cooperative and healthy appearing Nutritional Appearance: well nourished Orientation/consciousness: patient oriented x3 Limitations: no limitations HENMT Head: Yes normal to inspection Eyes General: appearance normal, both eyes and all related structures Neck Neck: Yes normal visual inspection Chest Chest palpation & inspection: normal palpation of entire chest wall Resp Effort & Inspection: normal respiratory effort Neuro General: patient oriented x3 Assessment and Plan Assessment & Plan (1) Generalized anxiety disorder: Code(s): F41.1 - Generalized anxiety disorder Plan: Patient reports that her symptoms are stable on fluoxetine 30 mg a day. She is not requesting any therapy. Encouraged her to get on an exercise regimen. Starting of a new job should also help with some of her symptoms. (2) MCTD (mixed connective tissue disease): Code(s): M35.1 - Other overlap syndromes Plan: Patient is on Plaquenil and sees a head of science. She still has not had an eye appointment done. I encouraged her to get an eye appointment and have the retina examined. (3) Pituitary adenoma: Code(s): D35.2 - Benign neoplasm of pituitary gland Plan: Patient reports that her product control and logistics analyst recently done blood work and her prolactin is elevated. She needs to be on the cabergoline but needs neuro approval. She will contact us if we have to give her a new referral. Medications: Refilled fluoxetine 10 mg PO DAILY 90 tabs 0RF fluoxetine 20 mg PO DAILY 90 tabs 1RF meloxicam 15 mg PO DAILY 90 tabs 0RF M25.50 - Pain in unspecified joint Coding Level of Care Code Est Pt Level 4 (72354) Complex EM visit Add On G2211 Diagnoses Generalized anxiety disorder F41.1 MCTD (mixed connective tissue disease) M35.1 Pituitary adenoma D35.2
[2024-01-09 08:58] VITALS: BP 130/70; PULSE 83; O2SAT 93; BMI 31.3
== END 2024-01-09 09:44 | disposition home or self-care (01) ==
PROVIDERS: PCP Internal Medicine; Visit Provider Internal Medicine
DX: F41.1 Generalized anxiety disorder (principal); M35.1 Other overlap syndromes; D35.2 Benign neoplasm of pituitary gland
CPT/HCPCS: 99214

== ENCOUNTER 2024-07-25 09:06 | Outpatient (AMB) | payer OTHER, SELFPAY ==
--- NOTE | 2024-07-25 09:11 | A.OFFPC_ITS ---
Vital Signs 07/25/24 09:16 Height 5 ft 6 in Weight 201 lb 2 oz BMI 32.5 BP 110/70 Blood Pressure Location Lt brachial Position Sitting Pulse 77 Pulse Source Pulse Oximeter Temp 97.1 F Temp Source Skin Pulse Oximetry (%) 98 Oxygen Delivery Method Room Air Intake Visit Reasons: 6 mo follow up Intake Note: Patient is here to follow up on Migraine, Hypothyroidism. 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 policy Accompanied by: Self / Same As Patient Allergies dog,cats Allergy (Unknown, Uncoded 07/25/24 09:19) Unknown mold Allergy (Unknown, Uncoded 07/25/24 09:19) Unknown Medication List - Last Reconciled 07/25/24 by Emily Garcia PA-C cholecalciferol (vitamin D3) 125 mcg PO DAILY fluoxetine 10 mg PO DAILY fluoxetine 20 mg PO DAILY hydroxychloroquine 400 mg PO BID meloxicam 15 mg PO DAILY Tobacco use date assessed: 07/25/24 Dental Screening Dental Screen Date: 07/25/24 Did you have a dental visit in the last 12 months?: Yes Did you have a dental problem in the last 6 months where you did not have access to dental care?: No Was dental information given to patient?: Patient has dentist [facility] Medical History MCTD (mixed connective tissue disease) PCOS (polycystic ovarian syndrome) Hyperthyroidism Migraine Chronic ear pain Surgical History History of delivery History of right knee surgery Family History Mother No problems noted. Father High blood pressure Social History Housing: Apartment Alcohol intake: never Patient Tobacco Use Status: Never used Tobacco e-Cigarette/Vaping Use: Former Use Second Hand Smoke Exposure: No service: No Current occupational status: employed Cognitive needs: No Hearing needs: No Vision needs: Yes (glasses) Questionnaire PHQ-9 Over the last 2 weeks, how often have you been bothered by any of the following problems? 1. Little interest or pleasure in doing things: nearly every day 2. Feeling down, depressed, or hopeless: several days 3. Trouble falling or staying asleep, or sleeping too much: nearly every day 4. Feeling tired or having little energy: several days 5. Poor appetite or overeating: nearly every day 6. Feeling bad about yourself - or that you are a failure or have let yourself or your family down: several days 7. Trouble concentrating on things, such as reading the newspaper or watching television: nearly every day 8. Moving or speaking so slowly that other people could have noticed. Or the opposite - being so fidgety or restless that you have been moving around a lot more than usual: not at all 9. Thoughts that you would be better off or of hurting yourself in some way: not at all Total score: 15 Depression Screening Interpretation: Positive Depression Screening Done: Yes Source: Developed by Drs. Caleb Muñoz, Carmina Severino, Rodrigo Ruvalcaba and colleagues, with an educational flor from [facility]. Thrive Questionnaire Date Thrive assessed: 07/25/24 I am a: Patient What is your living situation today?: I have a steady place to live Within the past 12 months, did the food you bought not last and you didn't have the money to get more?: Never true Within the past 12 months, did you worry whether your food would run out before you got money to buy more?: Never true Do you have trouble paying for medicines?: No Do you have trouble getting transportation to medical appointments?: No Do you have trouble paying your heating and electricity bill?: No Do you have trouble taking care of your child, family member or friend?: No Do you have trouble with day-to-day activities such as bathing, preparing meals, shopping, managing finances, etc.?: No Are you currently unemployed and looking for a job?: No Are you interested in more education?: No Please select the resources that you would like help with: None Currently or been in a relationship where the following occur: No concerns reported THRIVE Score: 0 AUDIT C Alcohol Use Questionnaire (AUDIT-C) 1. How often do you have a drink containing alcohol?: Never Total Score: 0 BAKARI-7 AMB Questionnaire BAKARI-7 Date BAKARI - 7 assessed: 07/25/24 Feeling nervous, anxious, or on edge: 3 = Nearly every day Not being able to stop or control worryin = Nearly every day Worrying too much about different things: 3 = Nearly every day Trouble relaxin = Several days Being so restless that it is hard to sit still: 0 = Not at all Becoming easily annoyed or irritable: 1 = Several days Feeling afraid as if something awful might happen: 1 = Several days Total BAKARI-7 score (0-4 normal; 5-9 mild; 10-14 moderate; 15-21 severe): 12 Source: Developed by Drs. Caleb Muñoz, Carmina Severion, Rodrigo Ruvalcaba and colleagues, with an educational flor from [facility]. Physical exam (Primary Care) Vital Signs: Last Vital Signs Temp 97.1 F 07/25/24 09:16 Pulse 77 07/25/24 09:16 BP 110/70 07/25/24 09:16 Pulse Ox 98 07/25/24 09:16 Oxygen Delivery Method Room Air 07/25/24 09:16 Care Plan Goal for BP management: <130/80 BMI result Body Mass Index 32.5 BMI Assessment/Plan discussion: High BMI High, discussed plan: lifestyle, weight reduction, dietary, physical activity and alcohol moderation Tobacco/Smoking Status: Tobacco use Status Tobacco use date assessed 07/25/24 07/25/24 09:16 Patient Tobacco Use Status Never used Tobacco 07/25/24 09:16 e-Cigarette/Vaping Use Former Use 07/25/24 09:16 PHQ-9: PHQ-9 Score PHQ-9: Total score 15 07/25/24 09:32 Depression Screening Interpretation: Positive Thrive Assessment: Date of Thrive Assessment Date Thrive assessed 07/25/24 07/25/24 09:16 Currently or been in a relationship where the following occur: No concerns reported Coding Level of Care Code Est Pt Level 4 (82631) Complex EM visit Add On G2211 Diagnoses Generalized anxiety disorder F41.1 MCTD (mixed connective tissue disease) M35.1 Hypothyroidism, unspecified type E03.9 Hypothyroidism type: unspecified Pituitary adenoma D35.2 Migraine without status migrainosus, not intractable, unspecified migraine type G43.909 Intractability: not intractable Migraine type: unspecified Status migrainosus presence: without status migrainosus Obesity (BMI 30.0-34.9) E66.811 Assessment & Plan Assessment & Plan (1) Generalized anxiety disorder: Code(s): F41.1 - Generalized anxiety disorder Category: Medical Plan: Patient reports she has been taking fluoxetine 40 mg instead of the 20 mg. Therefore will increase her dose to 40 mg daily. Will also refer to psychiatrist. Condition is chronic and stable continue to monitor. (2) MCTD (mixed connective tissue disease): Code(s): M35.1 - Other overlap syndromes Category: Medical Plan: Condition is chronic and stable continue to monitor. (3) Hypothyroidism: Code(s): E03.9 - Hypothyroidism, unspecified Category: Medical Qualifiers: Hypothyroidism type: unspecified Qualified Code(s): E03.9 - Hypothyroidism, unspecified Plan: Will reassess with repeat fasting labs. Patient to return in 6 months. Condition is chronic and stable continue to monitor. (4) Pituitary adenoma: Code(s): D35.2 - Benign neoplasm of pituitary gland Category: Medical Plan: Patient was on Cabargoline. Has not been on this medication and has not followed back up with Neurology in a proximally 1 year. Will refer back to Neurology. Condition is chronic and stable continue to monitor. (5) Migraine: Code(s): G43.909 - Migraine, unspecified, not intractable, without status migrainosus Category: Medical Qualifiers: Intractability: not intractable Migraine type: unspecified Status migrainosus presence: without status migrainosus Qualified Code(s): G43.909 - Migraine, unspecified, not intractable, without status migrainosus Plan: Patient reports a migraine headaches are related to her menstrual cycle. She takes [id number] medication. Referral to neurology placed. Condition is chronic and stable continue to monitor. (6) Obesity (BMI 30.0-34.9): Code(s): E66.811 - Obesity, class 1 Category: Medical Plan: Patient will improve her diet and increase her exercise. Condition is chronic and stable continue to monitor. Plan Plan - Continue regular magnesium supplements to manage migraine headaches. - Order blood work to check CBC, CMP, hemoglobin A1c, lipid panel, liver enzymes, magnesium, thyroid levels, vitamin , folate, and vitamin D. - Increase fluoxetine dosage to 40 mg daily for managing anxiety and depression. - Referral to neurology for follow-up on pituitary adenoma and prolactin level evaluation. - Referral to psychiatrist to assist with medication management. - Referral to therapy for anxiety management. - Arrange follow-up appointment in six months, along with current blood work. Orders: Orders Hemoglobin A1c Today Z00.00 - Encounter for general adult medical examination without abnormal findings Liver Panel Today Z00.00 - Encounter for general adult medical examination without abnormal findings Vitamin B12 and Folate Today Z00.00 - Encounter for general adult medical examination without abnormal findings Prolactin Today D35.2 - Benign neoplasm of pituitary gland Complete Blood Count Auto Diff Today Z00.00 - Encounter for general adult medical examination without abnormal findings Comprehensive [place]. Panel Fast Today Z00.00 - Encounter for general adult medical examination without abnormal findings Lipid Panel Today Z00.00 - Encounter for general adult medical examination without abnormal findings Magnesium Today Z00.00 - Encounter for general adult medical examination without abnormal findings Vitamin D 25-OH Total Today Z00.00 - Encounter for general adult medical examination without abnormal findings TSH reflex Free T4 Today Z00.00 - Encounter for general adult medical examination without abnormal findings Referrals Neurology Referral R20.2 - Paresthesia of skin Psychiatry Outpatient Consultation Service F41.1 - Generalized anxiety disorder Medications: Changed From fluoxetine 20 mg PO DAILY 90 tabs 0RF To fluoxetine 40 mg (2 x 20 mg) PO DAILY 90 tabs 1RF Discontinued fluoxetine Discontinued Reason: Entered in error 10 mg PO DAILY 90 tabs 0RF Patient Instructions: Patient Instructions - Continue taking magnesium supplements as recommended. - Have blood work done to check several health parameters; fasting may be required for some tests. - Increase fluoxetine to 40 mg daily, as discussed. - Follow up with a neurologist for pituitary adenoma evaluation. - Attend counseling sessions with a therapist for anxiety and stress management. - Consider psychiatry consultation for medication management. - Schedule a six-month follow-up appointment for ongoing care and assessment. Scribe Plan - Not visible on output: History of Present Illness The patient is a 39-year-old female presenting for a six-month follow-up appointment. Her medical history includes migraine headaches, previously evaluated by a neurologist, and associated with her menstrual cycle; these are currently being managed with magnesium supplements and are more manageable now. She also has a history of thyroid issues for which she consistently undergoes blood work during her follow-up visits. The patient reported an elevated prolactin level in the past, for which she was managed on cabergoline but has not been to a neurologist in over a year. She has a history of polycystic ovary syndrome (PCOS) with suspected insulin resistance, leading to fluctuating weight and difficulty losing weight. No recent checks for diabetes were noted, though no A1c level was found in the records. She is also dealing with anxiety, previously managed with fluoxetine, and is currently taking higher doses to better manage her symptoms. Social History - Exercise and Activity Level: Patient recognizes the need for better lifestyle choices - Weight Management: The patient experiences fluctuating weight and attributes it partially to insulin resistance related to PCOS. - Substance Use: No substance use was discussed. - Nutrition: Believes she knows what dietary changes are necessary but did not follow specific dietary behavior mentioned. - Functional Status: Seems capable but self-acknowledged inactivity. - Family and Social Support: No specific details mentioned regarding family status. Review of Systems - Neurological: Reports migraine headaches associated with menstrual cycle. - Gastrointestinal: Reports frequent bloating. - Endocrine: Denies overt symptoms of hyperthyroidism or hypothyroidism. Physical Exam Appearance: Alert. Oriented X3. No acute distress. Head: Normal external exam. Normocephalic. Atraumatic. Eyes: Pupils are equal, round, and reactive to light. Extraocular movements intact. Conjunctiva and sclera normal. Eyelids normal. Ears: External auditory canal normal. Tympanic membranes normal. Throat: Pharynx normal. Uvula midline. Moist mucous membranes. Neck: Normal inspection. Neck supple. Full range of motion. No adenopathy. Thyroid Normal. No meningeal signs. No neck mass noted. Cardiovascular: Normal heart rate and rhythm. Heart sound normal. No murmurs noted. Pulses normal throughout. Respiratory: No respiratory distress. Painless inspiration. Breath sounds normal. No wheezes/rales/rhonchi noted. Chest nontender. No accessory muscle usage noted or decreased air movement noted. Abdomen: Soft and nontender. Bowel sounds normal in all 4 quadrants. No distention noted. No organomegaly noted. No visible injury noted. Patient reports always feeling bloated. Back: Full range of motion noted. Skin: Skin warm and dry. Normal skin color. Normal skin turgor. No rashes/lesions/lacerations noted. Extremities: No lower extremity edema. Extremities exhibit normal range of motion. Extremities nontender. Neuro: Oriented X 3. No motor deficit. No sensory deficit. Reflexes normal. Results - Labs: Prolactin levels were acknowledged but not detailed in conversation results noted from previous blood work in December and July as normal. Plan - Continue regular magnesium supplements to manage migraine headaches. - Order blood work to check CBC, CMP, hemoglobin A1c, lipid panel, liver enzymes, magnesium, thyroid levels, vitamin , folate, and vitamin D. - Increase fluoxetine dosage to 40 mg daily for managing anxiety and depression. - Referral to neurology for follow-up on pituitary adenoma and prolactin level evaluation. - Referral to psychiatrist to assist with medication management. - Referral to therapy for anxiety management. - Arrange follow-up appointment in six months, along with current blood work. Patient was informed and verbally consented to the use of an ambient scribe for clinic note documentation during this visit. Discussion Notes During the consultation, I discussed the management of the patient's migraine headaches through magnesium supplementation and acknowledged the potential hormonal tie to her menstrual cycle. We talked about her elevated prolactin levels in the context of her benign pituitary adenoma and discussed a referral back to neurology for follow-up as she had not seen her neurologist in over a year. I proposed to increase her fluoxetine to better manage her depressive symptoms, ensuring it would be within the safe dosage range, explaining that it might require coordination with psychiatry. Furthermore, I outlined the need for comprehensive blood work to monitor various health parameters. We ensured that all referrals, including to therapy and psychiatry, would be initiated as desired by the patient for enhanced management of her anxiety. Patient Instructions - Continue taking magnesium supplements as recommended. - Have blood work done to check several health parameters; fasting may be required for some tests. - Increase fluoxetine to 40 mg daily, as discussed. - Follow up with a neurologist for pituitary adenoma evaluation. - Attend counseling sessions with a therapist for anxiety and stress management. - Consider psychiatry consultation for medication management. - Schedule a six-month follow-up appointment for ongoing care and assessment.
[2024-07-25 09:16] VITALS: BP 110/70; PULSE 77; TEMP 36.2; O2SAT 98; BMI 32.5
== END 2024-07-25 09:52 | disposition home or self-care (01) ==
PROVIDERS: PCP Internal Medicine; Visit Provider Physician Assistant Medical
DX: D35.2 Benign neoplasm of pituitary gland (principal); M35.1 Other overlap syndromes; E66.811 Obesity, class 1; Z68.32 Body mass index [BMI] 32.0-32.9, adult; F41.1 Generalized anxiety disorder; E03.9 Hypothyroidism, unspecified; G43.909 Migraine, unspecified, not intractable, without status migrainosus

== ENCOUNTER 2024-08-06 08:03 | Outpatient (REF) | payer OTHER, SELFPAY ==
[2024-08-06 08:23] LABS: MANUAL DIFF FLAG NO
[2024-08-06 08:48] LABS: Basophils Percent Auto 0.4 % (0-2); Eosinophils Absolute Auto 0.2 X10*3/uL (0.0-0.4); Eosinophils Percent Auto 2.4 % (0-4); Hematocrit 36.8 % (37.0-47.0); Hemoglobin 11.8 g/dl (12.0-16.0); Imm Gran Abs Auto 0.02 X10*3/uL (0.00-0.03); Imm Gran Pct Auto 0.3 % (0.0-0.4); Lymphocytes Absolute Auto 1.6 X10*3/uL (1.2-4.9); Mean Corpuscular HGB Conc 32.1 g/dl (31.0-35.0); Mean Corpuscular Hemoglobin 25.3 pg (27.0-33.0); Mean Corpuscular Volume 78.8 fL (80.0-98.0); Mean Platelet Volume 8.6 fL (9.4-12.3); Monocytes Absolute Auto 0.6 X10*3/uL (0.1-1.2); Monocytes Percent Auto 8.6 % (2-11); Neutrophils Absolute Auto 4.3 x10*3/uL (2.0-8.3); Neutrophils Percent Auto 64.3 % (45-73); Platelet Count 347 X10*3/uL (160-400); Red Blood Count 4.67 X10*6/uL (4.20-5.50); Red Cell Distribution Width 13.1 % (11.0-16.0); White Blood Count 6.7 X10*3/uL (4.8-10.8)
[2024-08-06 09:15] LABS: Estimated Average Glucose 108 mg/dL; Hemoglobin A1c % 5.4 % (<6.0); Total Hemoglobin (HGBA1C) 3176.1839 umol/L
[2024-08-06 09:43] LABS: Alanine Aminotransferase 15 U/L (0-31); Albumin Level 4.1 g/dL (3.5-5.0); Alkaline Phosphatase 54 U/L (39-117); Anion Gap 12 (12-20); Aspartate Amino Transferase 17 U/L (5-31); Bilirubin Direct 0.1 mg/dL (0.0-0.5); Bilirubin Total 0.3 mg/dL (0.0-1.0); Blood Urea Nitrogen 17 mg/dL (9-16); Calcium 8.9 mg/dL (8.4-10.2); Carbon Dioxide 25 mmol/L (22-29); Chloride 107 mmol/L (96-108); Cholesterol 168 mg/dL (<200); Estimated Glomerular Filt Rate > 60; Glucose Fasting 88 mg/dL (60-99); HDL Cholesterol 54 mg/dL (>40); LDL Cholesterol Calculated 101 mg/dL (<100); Magnesium 1.9 mg/dL (1.6-2.6); Potassium 4.2 mmol/L (3.3-5.1); Sodium 140 mmol/L (135-145); Total Protein 7.7 g/dL (6.5-8.0); Triglycerides 69 mg/dL (<150)
[2024-08-06 09:53] LABS: TSH reflex Free T4 2.95 uIU/mL (0.32-4.0)
[2024-08-06 09:54] LABS: Vitamin B12 403 pg/mL (200-900)
[2024-08-07 07:44] LABS: Prolactin 26.2 ng/mL
== END 2024-08-06 08:04 | disposition home or self-care (01) ==
LOC: HO.LAB 08:03
PROVIDERS: PCP Physician Assistant Medical; Visit Provider Physician Assistant Medical
DX: Z00.00 Encounter for general adult medical examination without abnormal findings (principal); D35.2 Benign neoplasm of pituitary gland; Z13.220 Encounter for screening for lipoid disorders; Z13.228 Encounter for screening for other metabolic disorders; Z13.1 Encounter for screening for diabetes mellitus
CPT/HCPCS: 36415; 80053; 80061; 80076; 82248; 82306; 82607; 82746; 83036; 83735; 84146; 84443; 85025